=== PATIENT | male | born 2000 | race Hispanic/Latino ===

== ENCOUNTER 2023-10-30 21:45 | Emergency (ER) | payer MEDICAID, OTHER ==
[~2023-10-30] VITALS: Ht 170.2 cm; Wt 68.9 kg
[2023-10-30 22:02] VITALS: BP 136/67; PULSE 67; RESP 19; O2SAT 100
[2023-10-30] MEDS ORDERED: ACET-2743 PO (22:55)
[2023-10-30] MEDS ORDERED: MELO-108 PO (22:55)
[2023-10-30] MEDS: IBUPROFEN 800 MG TAB PO ONE (22:55)
[2023-10-30] MEDS: LIDOCAINE 5% TOPICAL PATCH TP ONE (22:56)
[2023-10-30] MEDS: HYDROCODONE/ACETAMINOPHEN 5/325 MG TAB PO ONE (22:56)
== END 2023-10-30 23:03 | disposition home or self-care (01) ==
LOC: EDH 21:45
DX: R07.89 Other chest pain (principal)
CPT/HCPCS: 71250

== ENCOUNTER 2024-01-21 07:57 | Emergency (ER) | payer SELFPAY ==
[~2024-01-21] VITALS: Ht 170.2 cm; Wt 68.0 kg
[~2024-01-21 07:57] MED LIST: ACET-2743 PO; MELO-108 PO
[2024-01-21 08:30] LABS: BASOPHILS # (AUTO) 0.06 K/uL (0.00-0.20); BASOPHILS % (AUTO) 0.9 % (0.0-5.0); EOSINOPHILS # (AUTO) 0.18 K/uL (0.00-0.70); EOSINOPHILS % (AUTO) 2.7 % (0.0-8.0); HEMATOCRIT 45.2 % (42-54); IMMATURE GRANULOCYTE ABSOLUTE 0.01 K/uL (0-1); LYMPHOCYTES % (AUTO) 30.6 % (21.0-51.0); MEAN CORPUSCULAR HEMOGLOBIN 30.9 pg (27.0-33.0); MEAN CORPUSCULAR VOLUME 88.3 fL (79-99); MONOCYTES # (AUTO) 0.8 K/uL (0.1-1.0); MONOCYTES % (AUTO) 11.3 % (3.0-13.0); NEUTROPHILS # (AUTO) 3.6 K/uL (1.8-7.7); NEUTROPHILS % (AUTO) 54.3 % (40.0-77.0); PLATELET COUNT (AUTO) 198 K/uL (130-400); RED BLOOD CELL COUNT(AUTO) 5.12 MIL/uL (4.50-6.20); RED CELL DISTRIBUTION WIDTH 12.1 % (11.0-15.5); WHITE BLOOD COUNT (AUTO) 6.7 K/uL (4.8-10.8)
[2024-01-21 08:33] LABS: CREATININE 0.9 mg/dL (0.5-1.3); POTASSIUM 3.7 mmol/L (3.5-5.1)
[2024-01-21] MEDS ORDERED: IBUP-2070 PO (08:47)
[2024-01-21] MEDS ORDERED: ACET-66 PO (08:47)
[2024-01-21 09:34] LABS: APPEARANCE,URINE CLOUDY (CLEAR); BILIRUBIN,URINE NEGATIVE (NEGATIVE); COLOR,URINE LIGHT-YELLOW (YELLOW); GLUCOSE, URINE (UA) NEGATIVE (NEGATIVE); KETONES,URINE NEGATIVE (NEGATIVE); LEUKOCYTE ESTERASE ,URINE NEGATIVE Leu/uL (NEGATIVE); NITRATE,URINE NEGATIVE (NEGATIVE); PROTEIN,URINE NEGATIVE (NEGATIVE); UROBILINOGEN,URINE 0.2 mg/dL (0.2-1.0)
[2024-01-21 09:35] LABS: ADD UA MICROSCOPIC YES
[2024-01-21 09:43] LABS: AMPHET/METH SCREEN,URINE NEGATIVE (NEGATIVE); BARBITURATE SCREEN, URINE NEGATIVE (NEGATIVE); BENZODIAZEPINES SCREEN,URINE NEGATIVE (NEGATIVE); CANNABINOID SCREEN,URINE POSITIVE (NEGATIVE); COCAINE SCREEN,URINE NEGATIVE (NEGATIVE); OPIATE SCREEN,URINE NEGATIVE (NEGATIVE); PHENCYCLIDINE SCREEN,URINE NEGATIVE (NEGATIVE)
[2024-01-21 10:09] LABS: BACTERIA,URINE RARE /HPF (None Seen); CALCIUM OXALATE CRYSTALS,UR RARE /LPF (None Seen); MUCUS,URINE RARE LPF (None Seen); SQUAMOUS EPITHELIAL CELL,UR RARE /HPF (0-2); WBC,URINE 0-1 /HPF (0-1)
[2024-01-21] MEDS: acetaMINOPHEN 500 MG TABLET PO ONE (12:17)
[2024-01-21 12:28] VITALS: BP 128/78; PULSE 68; RESP 16; O2SAT 98
== END 2024-01-21 13:14 | disposition home or self-care (01) ==
LOC: EDH 07:57
DX: R07.89 Other chest pain (principal); R07.1 Chest pain on breathing; Z79.899 Other long term (current) drug therapy
CPT/HCPCS: 36415; 71045; 80048; 80305; 81001; 84484; 85025; 93005

== ENCOUNTER 2024-04-27 08:59 | Emergency (ER) | payer SELFPAY ==
[~2024-04-27] VITALS: Ht 170.2 cm; Wt 70.3 kg
[~2024-04-27 08:59] MED LIST changes: +ACET-66 PO; +IBUP-2070 PO
[2024-04-27] MEDS ORDERED: AMOX500C2 PO (09:16)
[2024-04-27] MEDS ORDERED: NAPR-1505 PO (09:16)
--- NOTE | 2024-04-27 09:16 | ERN ---
General Chief Complaint: Tooth Ache/Pain Stated Complaint: TOOTHACHE Time Seen by MD: 09:00 Source: patient History of Present Illness Initial Comments Patient is a 24-year-old male coming in to be evaluated for tooth pain. Patient states that this pain has been ongoing for three days. Allergies: Coded Allergies: No Known Drug Allergies (Unverified Allergy, Unknown, 01/21/24) Home Meds Active Scripts Acetaminophen (Tylenol) 500 Mg Tab, 500 MG PO Q6HPRN PRN for PAIN LEVEL 1 TO 5, #30 TAB Prov:YAMILKA JOYA MD 01/21/24 Ibuprofen (Ibuprofen) 600 Mg Tablet, 600 MG PO Q6H PRN for PAIN, #15 TAB Prov:YAMILKA JOYA MD 01/21/24 Acetaminophen (Tylenol Extra Strength) 500 Mg Tablet, 1000 MG PO QID PRN for PAIN for 10 Days, #20 TAB Prov:TOSHIA MAGANA DO 10/30/23 Meloxicam (Meloxicam) 15 Mg Tablet, 15 MG PO DAILY PRN for PAIN for 10 Days, #10 TAB Prov:TOSHIA MAGANA DO 10/30/23 Past Medical History Past Medical History: No Pertinent History Past Surgical History: None ROS Dictation CONSTITUTIONAL: No chills, no fever, no weakness, no diaphoresis, no malaise. HEAD/FACE: No signs of trauma. EENT: No eye pain, no blurred vision, no tearing, no double vision, no ear pain, no ear discharge, no nose pain, no nasal congestion, no throat pain, no throat swelling, mouth pain. RESPIRATORY: No cough, no orthopnea, no SOB, no stridor, no wheezing. CARDIOVASCULAR: No chest pain, no edema, no palpitations, no syncope. GASTROINTESTINAL/ABDOMINAL: No abdominal pain, no constipation, no diarrhea, no nausea, no vomiting. GENITOURINARY: No abnormal discharge, no dysuria, no frequent urination, no hematuria. No complaints of pain in the genitals. MUSCULOSKELETAL: No back pain, no gout, no joint pain, no joint swelling, no muscle pain, no muscle stiffness, no neck pain. INTEGUMENTARY: No change in color, no change in hair/nails, no dryness, no lesion, no lumps, no rash. NEUROLOGICAL/PSYCH: No anxiety, not depressed, no emotional problem, no headache, no numbness, no pre-existing deficit, no history of seizures, no tremors, no weakness. HEMATOLOGIC/LYMPHATIC: Not anemic, no history of blood clots, no apparent bleeding, no bruising, glands not swollen. All Systems Negative, Except as Noted. Physical Exam Physical Exam Dictation VITAL SIGNS: Reviewed. GENERAL APPEARANCE: Alert, oriented x3, no acute distress, obese. HEAD AND FACE: Non-traumatic. EYES: PERRL, pink conjunctivas, eyelid no trauma, anterior chamber clear. EARS: Pinnas intact and no signs of trauma or erythema. Ear canals clear and no discharge. TMs no erythema. NOSE: No discharge, no bleeding. OROPHARYNX: Mouth normal, teeth no caries, periodontal disease present, tongue pink. Pharynx clear, no erythema. Tonsils no exudates, no abscesses noted. Mucous membrane moist. NECK: Supple, non-tender, no thyromegaly, no masses, no JVD, no bruits. BREAST: Deferred. CHEST: No tenderness, no crepitus, no paradoxical movement, no retractions. LUNGS: Clear, well-ventilated, symmetric, no rales, no wheezing, no rhonchi, no stridor, good breath sounds bilaterally. HEART: Regular rate, regular rhythm, no murmur, no gallops. VASCULAR: No peripheral edema. ABDOMEN: Soft, positive bowel sounds, nondistended, no guarding, nontender, no rebound, no masses no hepatomegaly, no splenomegaly, no Salter's sign, no hernias. RECTAL: Deferred. GENITAL: Deferred. NEUROLOGICAL: Normal speech, gross motor function intact, gross sensory function intact. MUSCULOSKELETAL: Neck nontender, full range of motion, back nontender, full range of motion. EXTREMITIES: Nontender, full range of motion. SKIN: Color pink, dry, no turgor, no rash, no lacerations, no abrasions, no contusions. LYMPHATICS: Deferred. Results Laboratory and Microbiology Labs Reviewed?: Yes MDM MDM: Differential diagnosis: Periodontal disease, tooth fracture, gingivitis Patient is a 24-year-old male coming in to be evaluated for gingival pain. Per patient this pain has been ongoing for three days. On physical exam there is mild erythema on the base of the 11 and 12 tooth. Patient will be discharged with a diagnosis of periodontal disease. I advised him appropriate follow up with PCP and or dentist if needed. Antibiotics will be provided. ED Course Orders Procedure Category Date Status Time Ketorolac PHA 04/27/24 Verified Tromethamine 30mg/Ml 09:30 Vital Signs Date Time Temp Pulse Resp B/P (MAP) Pulse Ox O2 Delivery O2 Flow Rate FiO2 04/27/24 09:00 98.2 74 16 151/92 97 Room Air 0 DX & DISP Disposition: Discharge Departure Impression: Primary Impression: Periodontal disease Condition: Stable Scripts Naproxen (Naproxen) 375 Mg Tablet.dr 375 MG PO BID for 10 Days, #20 TAB Prov: JUAN MURPHY MD 04/27/24 Amoxicillin (Amoxicillin) 500 Mg Capsule 1 CAP PO TID for 10 Days, #30 CAP 0 Refills Prov: JUAN MURPHY MD 04/27/24 Additional Instructions: FOLLOW-UP WITH PRIMARY CARE PROVIDER IN 1 TO 2 DAYS. TAKE MEDICATIONS DIRECTED HERE IN THE EMERGENCY ROOM. OKAY TO CONTINUE HOME MEDICATIONS UNLESS OTHERWISE DISCUSSED DURING YOUR VISIT IN THE EMERGENCY ROOM TODAY. RETURN TO YOUR NEAREST EMERGENCY ROOM IF SYMPTOMS WORSEN OR IF THERE IS NO IMPROVEMENT. CALL 911 IF YOU NEED IMMEDIATE ASSISTANCE. TAKE TYLENOL [id number] NEEDED AND IF NO CONTRAINDICATIONS ARE PRESENT. INCREASE ORAL HYDRATION. A WOUND CULTURE OR URINE CULTURE WAS ORDERED HERE IN THE EMERGENCY ROOM DEPARTMENT PLEASE FOLLOW-UP WITH PRIMARY CARE PROVIDER AND ADVISE THEM TO GET REPEAT PORTS FROM OUR FACILITY. IF YOU HAD ANY MISAEL WRAP/SPLINTS THAT WERE APPLIED HERE, PLEASE DO NOT REMOVE THEM UNTIL YOU SEE YOUR PRIMARY CARE OR SPECIALTY. Referrals: Referrals: NONE (PCP) SAVI KEENAN MD Time of Disposition: 09:15 JUAN MURPHY MD Apr 27, 2024 09:16
[2024-04-27] MEDS: ketOROlac 30MG VIAL (30MG/ML) IM ONE (09:34)
[2024-04-27 09:46] VITALS: BP 131/93; PULSE 54; RESP 18; TEMP 98.2; O2SAT 97
== END 2024-04-27 10:02 | disposition home or self-care (01) ==
LOC: EDH 08:59
DX: K05.6 Periodontal disease, unspecified (principal)
CPT/HCPCS: 99283; 96372; J1885